=== PATIENT | female | born 1985 | race Caucasian/White ===

== ENCOUNTER 2018-12-09 12:16 | Outpatient (REF) | payer BC, SELFPAY ==
[2018-12-10 05:01] LABS: Vitamin D 25 Total 30.9 ng/ml (30-100)
== END 2018-12-09 12:36 ==
LOC: NCHCN 12:16
PROVIDERS: Visit Provider Family Medicine
DX: F41.8 Other specified anxiety disorders (principal)
CPT/HCPCS: 82306

== ENCOUNTER 2019-06-28 13:03 | Outpatient (REF) | payer BC, SELFPAY ==
[2019-06-28 22:14] LABS: ALT 19 U/L (14-59); Triglyceride 113 mg/dL (<150)
== END 2019-06-28 13:23 ==
LOC: LBN 13:03
PROVIDERS: PCP Family Medicine; Visit Provider Physician Assistant Surgical
DX: L70.8 Other acne (principal); L71.0 Perioral dermatitis
CPT/HCPCS: 84460; 84478

== ENCOUNTER 2020-09-13 22:31 | Outpatient (REF) | payer BC, SELFPAY ==
[2020-09-13 22:41] LABS: TSH (W/Ref FT4) 1.24 uIU/mL (0.36-3.74)
== END 2020-09-13 22:32 | disposition home or self-care (01) ==
LOC: NCHCN 22:31
PROVIDERS: PCP Family Medicine; Visit Provider Internal Medicine
DX: R63.5 Abnormal weight gain (principal)
CPT/HCPCS: 84443

== ENCOUNTER 2021-03-01 16:32 | Outpatient (REF) | payer BC, SELFPAY ==
[2021-03-01 22:01] LABS: ALT 20 U/L (14-59); AST 16 U/L (15-37); Albumin 3.5 g/dL (3.4-5.0); Alkaline Phosphatase 67 U/L (46-116); Anion Gap 9.8 mmol/L (3-11); BUN 9 mg/dL (7-18); Bilirubin, Total 0.2 mg/dL (0.2-1.0); CO2 25.2 mmol/L (21.0-32.0); CREATININE 0.8 mg/dL (0.55-1.02); Calcium 8.7 mg/dL (8.5-10.1); Chloride 104 mmol/L (98-107); Glucose 101 mg/dL (74-106); Potassium 4.3 mmol/L (3.5-5.1); Sodium 139 mmol/L (136-145)
== END 2021-03-01 16:33 | disposition home or self-care (01) ==
LOC: NCHCN 16:32
PROVIDERS: PCP Family Medicine; Visit Provider Internal Medicine
DX: R63.5 Abnormal weight gain (principal); E66.9 Obesity, unspecified
CPT/HCPCS: 80053

== ENCOUNTER 2023-10-08 11:24 | Outpatient (REF) | payer OTHER, SELFPAY ==
[2023-10-08 14:59] LABS: Anion Gap 7.2 mmol/L (3-11); BUN 12 mg/dL (7-18); CO2 27.8 mmol/L (21.0-32.0); CREATININE 0.7 mg/dL (0.55-1.02); Calcium 9.1 mg/dL (8.5-10.1); Chloride 104 mmol/L (98-107); Estimated GFR 114.88 (mL/min/1.73m2); Glucose 99 mg/dL (74-106); Potassium 4.5 mmol/L (3.5-5.1); Sodium 139 mmol/L (136-145)
== END 2023-10-08 11:25 | disposition home or self-care (01) ==
LOC: NCHCN 11:24
PROVIDERS: PCP Family Medicine; Visit Provider Internal Medicine
DX: L70.9 Acne, unspecified (principal)
CPT/HCPCS: 80048